=== PATIENT | male | born 1960 | race American Indian/Alaskan Native ===

== ENCOUNTER 2016-05-23 07:00 | Day surgery (SDC) | payer BC ==
--- NOTE | 2016-05-23 07:49 | Anesthesia Day of Surgery ---
Anesthesia Day of Surgery - Day of Surgery Patient Examined: Yes Patient H&P Reviewed: Yes Patient is NPO: Yes Beta Blockers: No Cardiac Clearance: No Pulmonary Clearance: No
[2016-05-23] MEDS ORDERED: DILAUDID IV PRN (07:51)
[2016-05-23] MEDS ORDERED: SUBLIMAZE IV PRN (07:51)
[2016-05-23] MEDS ORDERED: ZOFRAN IV PRN (07:51)
--- NOTE | 2016-05-23 07:51 | Anesthesia Consultation ---
Anesthesia Consult and Med Hx Date of service: 05/23/16 - Airway Anesthetic Teeth Evaluation: Dentures (upper/multiple missing bottom with chips in teeth present) ROM Head & Neck: Adequate Mental/Hyoid Distance: Adequate Mallampati Class: Class II - Pulmonary Exam CTA: Yes (blbs clear) - Cardiac Exam Cardiac Exam: RRR - Pre-Operative Health Status ASA Pre-Surgery Classification: ASA3 Proposed Anesthetic Plan: General (elevated potassium will recheck today) - Pulmonary Hx Smoking: Yes (1/2 PPD X 35 YRS) Hx Sleep Apnea: No (SARAH PRE SCREEN HIGH RISK) - Cardiovascular System Hx Hypertension: Yes (NO MEDS YET) - Other Systems Hx Substance Use: Yes (STOPPED COCAINE X 3 YRS) Hx Cancer: No
[2016-05-23] MEDS ORDERED: NACL BACTERIOSTATIC INFILTRATI ONE (07:55)
[2016-05-23] MEDS ORDERED: XYLOCAINE MPF 2% ONE (07:58)
[2016-05-23] MEDS ORDERED: DIPRIVAN 10 MG/ML IV ONE ×2 (07:59→09:55)
[2016-05-23] MEDS ORDERED: VERSED IV NR (08:00)
[2016-05-23] MEDS ORDERED: PEPCID PO NR (08:00)
[2016-05-23] MEDS: NACL 0.9% 1000 ML 1,000 ML IV SCH ×2 (08:28→12:08)
[2016-05-23] MEDS ORDERED: ANCEF/STERILE WATER 2 GM/20 ML IV NR (09:00)
[2016-05-23] MEDS ORDERED: MARCAINE 0.25% INFILTRATI ONE (09:36)
[2016-05-23] MEDS ORDERED: XYLOCAINE 1% 20 mL ONE (09:37)
[2016-05-23] MEDS ORDERED: DECADRON ONE (09:59)
--- NOTE | 2016-05-23 10:55 | Post Operative Note ---
Date of procedure: 05/23/16 Pre-op diagnosis: left scrotal mass Post-op diagnosis: same Findings: L spermatocel;e Procedure: L scrotal expl excision of mass Anesthesia: GETA Surgeon: TRISTAN CAMP Estimated blood loss: minimal Pathology: list (as above plus ap testes) Specimen disposition: to lab Condition: stable Disposition: PACU
--- NOTE | 2016-05-23 10:57 | Discharge Summary ---
Short Stay Discharge Plan Activity: other (no straining ) Weight Bearing Status: Full Weight Bearing Diet: low fat, low cholesterol, low salt Wound: drain care as instructed Special Instructions: other (ice packs in RR and x 24hrs ) Durable Medical Equipment Needed Upon Discharge: other (mesh panties dressing change q day ) Follow up with: PRIMARY CARE, [Primary Care Provider] - 7 Days TRISTAN CAMP MD [Staff Physician] - 05/26/16
--- NOTE | 2016-05-23 11:28 | Operative Report ---
PREOPERATIVE DIAGNOSIS: Left scrotal mass with tenderness enlarging. POSTOPERATIVE DIAGNOSIS: Left scrotal mass with tenderness enlarging. PROCEDURE: Excision of left scrotal mass. SURGEON: Clint Black MD ANESTHESIA: General. FINDINGS: This is a gentleman with enlarging inferior pole of the epididymis mass which is multiloculated now presents for excision. DESCRIPTION OF PROCEDURE: The patient was brought to the operating room and placed on the operating table. Following induction of anesthesia, placed in supine position, prepped and draped in usual sterile fashion. An oblique incision was made over the left hemiscrotum and the testis was delivered. Hemostasis was excellent. A small opening in the tunica vaginalis was carried out. The testis was delivered. Multiloculated mass on the inferior aspect of the epididymis was carefully dissected off the surrounding vasculature. Small vessels were cauterized or tied with 3-0 Vicryl. The mass was excised intact and I showed the family picture of it. There was a prominent easily twistable appendix testis, which was cauterized and removed. The patient tolerated the procedure well. No significant complication. Wound was irrigated. A half inch Shira was placed in a dependent portion of the scrotum. Fascia was approximated with 3-0 chromic, skin with interrupted 3-0 chromic. The patient tolerated the procedure well. Minimal blood loss. Brought to recovery in stable condition. Family notified. JOB# [id number] ASHLEY/JOSEPHINE
--- NOTE | 2016-05-23 11:38 | Post Anesthesia Evaluation ---
- Post Anesthesia Evaluation Patient Participated: No (resting) Airway Patent: Yes Stable Respiratory Function: Yes Nausea/Vomiting: No Temp > 96.8F: Yes Pain Manageable: Yes Adequeate Hydration: Yes Anesthesia Complications: No Block Receding Appropriately: Not Applicable Patient on Ventilator: No
[2016-05-23 15:40] VITALS: BP 158/90
== END 2016-05-23 13:15 | disposition home or self-care (01) ==
LOC: OR 07:00
PROVIDERS: ATTEND Urology
DX: N50.3 Cyst of epididymis (principal); Q55.29 Other congenital malformations of testis and scrotum; F17.210 Nicotine dependence, cigarettes, uncomplicated; F14.21 Cocaine dependence, in remission; I10 Essential (primary) hypertension
CPT/HCPCS: 36415; 54512; 54830; 84132; 88304; J1100; J1170; J2250; J2704; J7030